=== PATIENT | male | born 1955 | race Caucasian/White ===

== ENCOUNTER 2025-07-30 20:21 | Inpatient (IN) | payer MEDICARE, MEDICAID ==
[~2025-07-30] VITALS: Ht 190.5 cm; Wt 116.1 kg
--- NOTE | 2025-07-30 20:50 | ED.PDOC ---
General HPI Comments 69y M who presents to the ED for chief complaint of flank pain. Pt states he has been having R flank pain for the past 2x weeks. Pt states his pain is constant, non-radiating, sharp in nature, with noted increasing pain with deep breaths and no relieving factors. Pt denies any associated symptoms. Pt denies history of kidney stones in the past. Pt in the ED, has noted heart rate of 111 with otherwise stable vitals. Pt denies any other symptoms at this time. Chief Complaint: Flank Pain Time Seen by MD: 20:48 Reviewed notes: Medications, Allergies Allergies: Coded Allergies: No Known Drug Allergy (Verified Allergy, Unknown, 07/30/25) Information Source: Patient Mode of Arrival: Ambulatory Brought in by: self Past Medical History PAST MEDICAL HISTORY: Denies Surgical History: Denies all surgeries Family History Family History: Reviewed,noncontributory to illness Social History Smoker: Non-Smoker Alcohol: Denies ETOH Use Drugs: Denies Drug Use Lives In: Home Constitutional: denies: chills, diaphoresis, fatigue, fever, malaise, sweats, weakness, others EENTM: denies: blurred vision, double vision, ear bleeding, ear discharge, ear drainage, ear pain, ear ringing, eye pain, eye redness, hearing loss, mouth pain, mouth swelling, nasal discharge, nose bleeding, nose congestion, nose pain, photophobia, tearing, throat pain, throat swelling, voice changes, others Respiratory: denies: cough, hemoptysis, orthopnea, SOB at rest, shortness of breath, SOB with excertion, stridor, wheezing, others Cardiovascular: denies: chest pain, dizzy spells, diaphoresis, Dyspnea on exertion, edema, irregular heart beat, left arm pain, lightheadedness, palpitations, PND, syncope, others Gastrointestinal: denies: abdomen distended, abdominal pain, blood streaked bowels, constipated, diarrhea, dysphagia, difficulty swallowing, hematemesis, melena, nausea, poor appetite, poor fluid intake, rectal bleeding, rectal pain, vomiting, others Genitourinary: reports: flank pain; denies: burning, dysuria, frequency, hematuria, incontinence, penile discharge, penile sore, pain, testicle pain, testicle swelling, urgency, others Neurological: denies: dizziness, fainting, headache, left sided numbness, left sided weakness, numbness, paresthesia, pre-existing deficit, right sided numbness, right sided weakness, seizure, speech problems, tingling, tremors, weakness, others Musculoskeletal: denies: back pain, gout, joint pain, joint swelling, muscle pain, muscle stiffness, neck pain, others Integumetry: denies: bruises, change in color, change in hair/nails, dryness, laceration, lesions, lumps, rash, wounds, others Allergic/Immunocompromised: denies: Difficulty Healing, Frequent Infections, Hives, Itching, others Hematologic/Lymphatic: denies: anemia, blood clots, easy bleeding, easy bruising, swollen glands, others Endocrine: denies: excessive hunger, excessive sweating, excessive thirst, excessive urination, flushing, intolerance to cold, intolerance to heat, unexplained weight gain, unexplained weight loss, others Psychiatric: denies: anxiety, bipolar disorder, depression, hopeless, panic disorder, schizophrenia, sleepless, suicidal, others All Other Systems: Reviewed and Negative Physical Exam General Appearance: No Apparent Distress, Normal HEENT: Normal ENT Inspection, Pharynx Normal, TMs Normal Neck: Full Range of Motion, Non-Tender, Normal, Normal Inspection Respiratory: Chest Non-Tender, Lungs Clear, No Accessory Muscle Use, No Respiratory Distress, Normal Breath Sounds Cardiovascular: No Edema, No JVD, No Murmur, No Gallop, Normal Peripheral Pulses, Regular Rate/Rhythm Breast Exam: Deferred Gastrointestinal: Tenderness (R flank tender to palpation, no CVA tenderness) Genitalia: Deferred Pelvic: Deferred Rectal: Deferred Extremities: No calf tenderness, Normal capillary refill, Normal inspection, Normal range of motion, Non-tender, No pedal edema Musculoskeletal : Apperance: Normal Neurologic: Alert, 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 Was a procedure done?: No Differential Diagnosis Kidney stone (Female): N/A Kidney stone (Male): Cholelithiasis, DJD, Pyelonephritis, Strain, Urolithiasis, Urinary tract infection, Other (hydronephrosis) X-Ray, Labs, Meds, VS Vital Signs Date Time Temp Pulse Resp B/P (MAP) Pulse Ox O2 Delivery O2 Flow Rate FiO2 07/30/25 20:22 98.8 111 16 139/87 95 98.8 Lab Test 07/30/25 21:38 07/30/25 21:12 Range/Units Urine Color Pending Urine Clarity Pending Urine pH Pending Urine Specific [place] Pending Urine Protein Pending Urine Ketones Pending Urine Blood Pending Urine Nitrite Pending Urine Bilirubin Pending Urine Urobilinogen Pending Urine Leukocyte Esterase Pending Urine RBC Pending Urine Microscopic WBC Pending Urine Squamous Epithelial Cells Pending Urine Bacteria Pending Urine Glucose Pending White Blood Count 10.4 4.4-10.8 10^3/uL Red Blood Count 3.89 L 4.5-5.90 10^6/uL Hemoglobin 13.6 13.5-17.5 g/dL Hematocrit 39.0 L 41.0-53.0 % Mean Corpuscular Volume 100.5 H 80.0-100.0 fL Mean Corpuscular Hemoglobin 35.0 H 28.0-32.0 pg Mean Corpuscular Hemoglobin Concent 34.8 32.0-36.0 g/dL Red Cell Distribution Width 13.8 11.8-14.3 % Platelet Count 196 140-450 10^3/uL Mean Platelet Volume 7.2 6.9-10.8 fL Neutrophils (%) (Auto) 73.1 37.0-80.0 % Lymphocytes (%) (Auto) 16.3 10.0-50.0 % Monocytes (%) (Auto) 9.2 0.0-12.0 % Eosinophils (%) (Auto) 0.8 0.0-7.0 % Basophils (%) (Auto) 0.6 0.0-2.0 % Neutrophils # (Auto) 7.6 1.6-8.6 10 ^3/uL Lymphocytes # (Auto) 1.7 0.4-5.4 10 ^3/uL Monocytes # (Auto) 1.0 0-1.3 10 ^3/uL Eosinophils # (Auto) 0.1 0-0.8 10 ^3/uL Basophils # (Auto) 0.1 0-0.2 10 ^3/uL Nucleated Red Blood Cells 0.0 % Sodium Level 138 136-145 mmol/L Potassium Level 4.1 3.5-5.1 mmol/L Chloride Level 108 H 98-107 mmol/L Carbon Dioxide Level 19 L 20-31 mmol/L Anion Gap 11 5-15 Blood Urea Nitrogen 19 9-23 mg/dL Creatinine 1.44 H 0.700-1.30 mg/dL Glomerular Filtration Rate Calc 52 >90 mL/min BUN/Creatinine Ratio 13.2 10.0-20.0 Serum Glucose 123 H 74-106 mg/dL Calcium Level 9.5 8.7-10.4 mg/dL Total Bilirubin 0.7 0.2-1.0 mg/dL Aspartate Amino Transferase (AST) 17 13-40 U/L Alanine Aminotransferase (ALT) 14 7-40 U/L Alkaline Phosphatase 82 46-116 U/L Total Protein 7.4 5.7-8.2 g/dL Albumin 4.0 3.2-4.8 g/dL Lipase 38 12-53 U/L Current Medications Medications (Trade) Dose Ordered Sig/Robert Route Start Time Stop Time Status Last Admin Methylprednisolone Sodium Succinate (Solu Medrol) 125 mg ONCE ONCE IM 07/30/25 21:00 07/30/25 21:06 DC 07/30/25 21:51 Ketorolac Tromethamine (Toradol Injection) 30 mg ONCE ONCE IM 07/30/25 21:00 07/30/25 21:06 DC 07/30/25 21:52 X-Ray, Labs, Meds, VS Comment Patient will be admitted for kidney stones and pneumonia Recommend urology consult, patient already on tamsulosin, kidney stone measures 7 mm, less likely of passing the stone Time of 1ST Reevaluation: 21:20 Reevaluation 1ST: Unchanged Patient Education/Counseling: Diagnosis, Treatment Family Education/Counseling: Diagnosis, Treatment SEPSIS Sepsis Screen Date sepsis recognized/suspect: Jul 30, 2025 Time Sepsis recognized/suspect: 2025 Recent Procedure: No On Antibiotic Therapy: No Respiratory Rate >20: No Heart Rate >90: No Temp<36 C (96.8 F) or >38.3 C: No SBP <90 or MAP <65 mmHG: No New Acute Mental Status Change: No Is the patient on CPAP, BIPAP,: No Physician Orders Ct Ab Pel Wo Con-No Oral Or Iv (07/30/25 20:50) Urinalysis (07/30/25 20:50) Vital Signs Date Time Temp Pulse Resp B/P (MAP) Pulse Ox O2 Delivery O2 Flow Rate FiO2 07/30/25 20:22 98.8 111 16 139/87 95 98.8 Laboratory Tests Test 07/30/25 21:12 White Blood Count 10.4 10^3/uL (4.4-10.8) Medications Medications Dose Ordered Sig/Robert Route Start Time Stop Time Status Last Admin Dose Admin Ketorolac Tromethamine 30 mg ONCE ONCE IM 07/30/25 21:00 07/30/25 21:06 DC 07/30/25 21:52 Methylprednisolone Sodium Succinate 125 mg ONCE ONCE IM 07/30/25 21:00 07/30/25 21:06 DC 07/30/25 21:51 Departure 1 Departure Time of Disposition: 22:34 Impression: Primary Impression: Pneumonia Qualified Codes: J18.9 - Pneumonia, unspecified organism Additional Impression: Kidney stone Disposition: ADMITTED INPATIENT Condition: Stable Critical Care Note Critical Care Time?: No Stability Stability form required: No Heart Score Heart Score: Heart Score Response (Comments) Value History N/A 0 EKG N/A 0 Age N/A 0 Risk Factors N/A 0 Troponin N/A 0 Total 0 I personally scribed for TOÑITO JAMISON ([email or web address]) on 07/30/25 at 20:50. Electronically submitted by Joceline PADILLA). TOÑITO JAMISON Jul 30, 2025 20:50
[2025-07-30 21:24] LABS: Hematocrit 39.0 % (41.0-53.0); Hemoglobin 13.6 g/dL (13.5-17.5); Mean Corpuscular Hemoglobin 35.0 pg (28.0-32.0); Mean Corpuscular Volume 100.5 fL (80.0-100.0); Nucleated Red Blood Cells % 0.0 %
[2025-07-30 21:38] LABS: Alanine Aminotransferase 14 U/L (7-40); Albumin 4.0 g/dL (3.2-4.8); Alkaline Phosphatase 82 U/L (46-116); Anion Gap 11 (5-15); BUN/Creatinine Ratio 13.2 (10.0-20.0); Bilirubin, Total 0.7 mg/dL (0.2-1.0); Blood Urea Nitrogen 19 mg/dL (9-23); Calcium 9.5 mg/dL (8.7-10.4); Lipase 38 U/L (12-53); Potassium 4.1 mmol/L (3.5-5.1); Sodium 138 mmol/L (136-145); Total Protein 7.4 g/dL (5.7-8.2)
[2025-07-30 21:39] LABS: Carbon Dioxide 19 mmol/L (20-31); Chloride 108 mmol/L (98-107); Glucose 123 mg/dL (74-106)
--- NOTE | 2025-07-30 21:49 | DVH ---
EXAM: CT CT AB PEL WO CON-NO ORAL OR IV HISTORY: flank pain COMPARISON STUDY: None TECHNIQUE: Multidetector CT of the abdomen and pelvis was performed from lung bases to pubic symphysis. Imaging was performed without IV contrast. Axial, coronal, and sagittal multiplanar reformats were obtained from the axial data set by the technologist. RADIATION DOSE: CTDI vol 19.7 mGy. DLP 1146.8 mGy.cm FINDINGS: Limited evaluation of the solid organs in the absence of IV contrast. Lungs: There is dense opacity most pronounced within the right lower lobe. Trace right pleural effusion. Liver: Unremarkable. Spleen: Unremarkable. Pancreas: Unremarkable. Gallbladder: Unremarkable. Adrenals: Nodular adrenal glands. Kidneys: 7 mm nonobstructing left renal calculus. Punctate right renal calculi. No hydronephrosis. Pelvic Viscera: Prostatic beads are noted. Vasculature: Atherosclerotic aortoiliac calcification. Retroperitoneum: Unremarkable. Bowel: Colonic diverticulosis without CT evidence of diverticulitis. No bowel obstruction. Small hiatal hernia. Musculoskeletal: Retrolisthesis of L2 on L3 with endplate degenerative changes and a possible Schmorl's node, correlation for point tenderness in this region is suggested. Soft tissues: Small fat containing umbilical hernia. IMPRESSION: 1. Dense opacity most pronounced within the right lower lobe suggestive of an infectious/inflammatory process in the appropriate clinical setting. A posttreatment follow-up is suggested to ensure appropriate resolution. 2. Retrolisthesis of L2 on L3 with endplate degenerative changes and a possible Schmorl's node, correlation for point tenderness in this region is suggested. If clinically indicated, MRI of the lumbar spine may be beneficial in further assessment. 3. Additional findings as detailed.
[2025-07-30] MEDS: methylPREDNISolone SOD SUCC 125 MG/2 ML VL IM ONE (21:51)
[2025-07-30] MEDS: KETOROLAC TROMETH 30 MG/ML 1ML VIAL IM ONE (21:52)
[2025-07-30 22:02] LABS: Urine Protein, UAD Negative (Negative)
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
[2025-07-31 02:01] VITALS: BP 135/95; PULSE 90; RESP 17; TEMP 97.5; O2SAT 96
[2025-07-31] MEDS ORDERED: AML5T PO (02:45)
[2025-07-31] MEDS ORDERED: METO25TA93 PO (02:45)
[2025-07-31] MEDS ORDERED: TAMS0.4C39 PO (02:45)
[2025-07-31] MEDS ORDERED: HYDROcodone-ACET 5/325MG TAB PO PRN (03:15)
[2025-07-31 04:43] LABS: Amphetamine Screen, Urine Neg (NEGATIVE); Barbiturate Scree,Urine Neg (NEGATIVE); Benzodiazephine Screen, Urine Neg (NEGATIVE); Cannabinoid Screen, Urine Neg (NEGATIVE); Cocaine Screen, Urine Neg (NEGATIVE); Opiate Scree,Urine Neg (NEGATIVE); Phencyclidine Screen, Urine Neg (NEGATIVE)
[2025-07-31] MEDS: ACETAMINOPHEN 325 MG TAB PO SCH (05:26)
[2025-07-31 07:19] LABS: Hematocrit 43.5 % (41.0-53.0); Hemoglobin 14.8 g/dL (13.5-17.5); Mean Corpuscular Hemoglobin 34.0 pg (28.0-32.0); Mean Corpuscular Volume 100.2 fL (80.0-100.0); Nucleated Red Blood Cells % 0.0 %
[2025-07-31 07:41] LABS: Alanine Aminotransferase 19 U/L (7-40); Alkaline Phosphatase 87 U/L (46-116); Anion Gap 10 (5-15); BUN/Creatinine Ratio 13.8 (10.0-20.0); Calcium 9.8 mg/dL (8.7-10.4); Carbon Dioxide 22 mmol/L (20-31); Chloride 107 mmol/L (98-107); Potassium 4.6 mmol/L (3.5-5.1); Sodium 139 mmol/L (136-145); Total Protein 7.8 g/dL (5.7-8.2)
[2025-07-31 07:43] LABS: Albumin 4.3 g/dL (3.2-4.8); Bilirubin, Total 0.4 mg/dL (0.2-1.0); Blood Urea Nitrogen 24 mg/dL (9-23); Glucose 182 mg/dL (74-106); INR 1.0 (0.9-1.15); Partial Thromboplastin Time 29.6 SEC (24.5-34.5); Prothrombin Time 10.6 sec (9.3-11.8)
[2025-07-31 08:00] VITALS: PULSE 56; PULSE 74; RESP 14; O2SAT 99
[2025-07-31 09:04] VITALS: BP 126/79; PULSE 79; RESP 17; TEMP 98.2; O2SAT 94
[2025-07-31] MEDS: AZITHROMYCIN 250 MG TAB PO SCH (10:26)
[2025-07-31] MEDS: METOPROLOL SUCCINATE XL 50 MG TAB PO SCH (10:28)
[2025-07-31] MEDS: ENOXAPARIN SOD 40 MG/0.4 ML SYRINGE SC SCH (10:30)
--- NOTE | 2025-07-31 12:33 | DVH ---
RENAL ULTRASOUND CLINICAL HISTORY: MIRIAM TECHNIQUE: Multiple grayscale ultrasound images were obtained through the kidneys and urinary bladder. COMPARISON: CT abdomen and pelvis from 07/30/2025 FINDINGS: Right kidney: Measures 8.83 cm. No hydronephrosis. Increased cortical echogenicity. Left kidney: Measures 9.71 cm. No hydronephrosis. Increased cortical echogenicity. Small echogenic lesion in the lower pole left kidney measuring 1 cm Urinary bladder: Unremarkable. Prevoid volume is 418 mL IMPRESSION: 1. Slightly small right kidney and normal-sized left kidney without hydronephrosis. 2. Increased cortical echogenicity of the bilateral kidneys which could be due to medical renal disease. 3. Small echogenic lesion in the lower pole left kidney measuring 1 cm compatible with known nonobstructing calculus.
[2025-07-31 12:52] VITALS: BP 118/82; PULSE 78; RESP 17; TEMP 98.6; O2SAT 98
[2025-07-31] MEDS: SODIUM CHLORIDE 0.9% 1,000 ML IV ONE (13:45)
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
[2025-07-31] MEDS ORDERED: TAMSULOSIN HYDROCHLORIDE 0.4 MG CAP PO SCH (18:00)
== END 2025-07-31 14:20 | disposition left against medical advice (07) | DRG 693 ==
LOC: ER 20:21 → OVERFLOW 23:56 → WEST WING 23:57
PROVIDERS: ADMIT Student in an Organized Health Care Education/Training Program; ATTEND Student in an Organized Health Care Education/Training Program
DX: N20.0 Calculus of kidney (principal); J18.9 Pneumonia, unspecified organism; N17.0 Acute kidney failure with tubular necrosis; I50.9 Heart failure, unspecified; I11.0 Hypertensive heart disease with heart failure; E11.9 Type 2 diabetes mellitus without complications; E66.9 Obesity, unspecified; Z53.29 Procedure and treatment not carried out because of patient's decision for other reasons; N40.0 Benign prostatic hyperplasia without lower urinary tract symptoms; Z87.891 Personal history of nicotine dependence
CPT/HCPCS: 36415; 74176; 76775; 80053; 80307; 81001; 82607; 82746; 83036; 83690; 85025; 85610; 85730; 87081; 87340; 96365; 96372; G0378; J1885